=== PATIENT | male | born 1990 | race Caucasian/White ===

== ENCOUNTER 2016-06-03 09:44 | Emergency (ER) | payer MEDICAID, OTHER ==
--- NOTE | 2016-06-03 10:05 | ER Document Report ---
ED Medical Screen (RME) - General Chief Complaint: Leg Pain Stated Complaint: RIGHT LEG/FOOT PAIN AND NUMBNESS Mode of Arrival: Ambulatory Information source: Patient Notes: Patient presents with complaints of lower back pain that he was evaluated by [facility] for one week ago. He was diagnosed with sciatica. He presents today with lower right leg pain and numbness to his foot TRAVEL OUTSIDE OF THE [place] IN LAST 30 DAYS: No - Related Data Allergies/Adverse Reactions: No Known Allergies Allergy (Verified 06/03/16 09:59) Past Medical History - Social History Chew tobacco use (# tins/day): No Frequency of alcohol use: Rare Drug Abuse: None Renal/ Medical History: Denies: Hx Peritoneal Dialysis - Immunizations Immunizations up to date: Yes Hx Diphtheria, Pertussis, Tetanus Vaccination: Yes Physical Exam - Vital signs Vitals: Temp Pulse Resp BP Pulse Ox 98.1 F 69 16 126/71 H 98 06/03/16 09:50 06/03/16 09:50 06/03/16 09:50 06/03/16 09:50 06/03/16 09:50 Course - Vital Signs Vital signs: Temp Pulse Resp BP Pulse Ox 98.1 F 69 16 126/71 H 98 06/03/16 09:50 06/03/16 09:50 06/03/16 09:50 06/03/16 09:50 06/03/16 09:50
--- NOTE | 2016-06-03 10:54 | ER Document Report ---
ED Extremity Problem, Lower - General Chief Complaint: Leg Pain Stated Complaint: RIGHT LEG/FOOT PAIN AND NUMBNESS Mode of Arrival: Ambulatory TRAVEL OUTSIDE OF THE [place] IN LAST 30 DAYS: No - HPI Patient complains to provider of: Altered sensation, Injury - This 26-year-old male who has experienced some discomfort to his right lower extremity related to sciatica last week after he impinged nerve while lifting some furniture. Since been seen a couple of different times and still has some symptomatology was advised follow-up with private doctor for his insurance did not cover such they presented here to the emergency room today - Related Data Allergies/Adverse Reactions: No Known Allergies Allergy (Verified 06/03/16 09:59) Past Medical History - General Information source: Patient - Social History Smoking Status: Current Every Day Smoker Chew tobacco use (# tins/day): No Frequency of alcohol use: Rare Drug Abuse: None Family History: None Patient has suicidal ideation: No Patient has homicidal ideation: No Renal/ Medical History: Denies: Hx Peritoneal Dialysis - Immunizations Immunizations up to date: Yes Hx Diphtheria, Pertussis, Tetanus Vaccination: Yes Review of Systems - Review of Systems Constitutional: No symptoms reported EENT: No symptoms reported Cardiovascular: No symptoms reported Respiratory: No symptoms reported Gastrointestinal: No symptoms reported Genitourinary: No symptoms reported Male Genitourinary: No symptoms reported Musculoskeletal: No symptoms reported Skin: No symptoms reported Hematologic/Lymphatic: No symptoms reported Neurological/Psychological: No symptoms reported Physical Exam - Vital signs Vitals: Temp Pulse Resp BP Pulse Ox 98.1 F 69 16 126/71 H 98 06/03/16 09:50 06/03/16 09:50 06/03/16 09:50 06/03/16 09:50 06/03/16 09:50 Interpretation: Normal - General General appearance: Appears well, Alert - HEENT Head: Normocephalic, Atraumatic Eyes: Normal Pupils: PERRL - Respiratory Respiratory status: No respiratory distress Chest status: Nontender Breath sounds: Normal Chest palpation: Normal - Cardiovascular Rhythm: Regular Heart sounds: Normal auscultation Murmur: No - Abdominal Inspection: Normal Distension: No distension Bowel sounds: Normal Tenderness: Nontender Organomegaly: No organomegaly - Back Back: Normal, Nontender - Extremities General upper extremity: Normal inspection, Nontender, Normal color, Normal ROM , Normal temperature General lower extremity: Normal inspection, Nontender, Normal color, Normal ROM , Normal temperature, Normal weight bearing. No: Mel's sign - Neurological Neuro grossly intact: Yes Cognition: Normal Orientation: AAOx4 Shreyas Coma Scale Eye Opening: Spontaneous Shreyas Coma Scale Verbal: Oriented [place] Coma Scale Motor: Obeys Commands [place] Coma Scale Total: 15 Speech: Normal Motor strength normal: LUE, RUE, LLE, RLE Sensory: Normal - Psychological Associated symptoms: Normal affect, Normal mood - Skin Skin Temperature: Warm Skin Moisture: Dry Skin Color: Normal Course - Re-evaluation Re-evalutation: 06/03/16 10:51 Patient I had a long discussion regarding his symptomatology having intermittent tingling sensation he did experience some of that while I was in the room while I was examining the extremities had good distal pulses good color good capillary refill. No loss of bowel or bladder function or saddle anesthesia no numbness he did experience intermittent tingling and again while displaying good neurovascular status to the affected area he walks with a rhythmic and steady gait he was advised to follow-up with a primary care physician and we did discuss sciatica in symptomatology is. - Vital Signs Vital signs: Temp Pulse Resp BP Pulse Ox 98.1 F 69 16 126/71 H 98 06/03/16 09:50 06/03/16 09:50 06/03/16 09:50 06/03/16 09:50 06/03/16 09:50 Discharge - Discharge Clinical Impression: right lower externally sciatica Disposition: HOME, SELF-CARE Additional Instructions: Follow-up with private doctor in 1 to 2 days for final radiology readings please return to the emergency room for any change worsening condition. Follow up with private M.D. for all other routine health care needs. Prescriptions: Prednisone [Deltasone 20 mg Tablet] 60 mg PO DAILY 5 Days
[2016-06-03 10:59] VITALS: BP 136/76
== END 2016-06-03 10:57 | disposition home or self-care (01) ==
LOC: ER 09:44
DX: M54.31 Sciatica, right side (principal); M79.604 Pain in right leg; R22.0 Localized swelling, mass and lump, head; F17.210 Nicotine dependence, cigarettes, uncomplicated
CPT/HCPCS: 99283